=== PATIENT | male | born 1995 | race Caucasian/White ===

== ENCOUNTER 2016-07-16 19:11 | Emergency (ER) | payer MEDICAID ==
[2016-07-16 21:45] VITALS: BP 127/68
== END 2016-07-16 21:45 | disposition home or self-care (01) ==
LOC: ED 19:11
DX: R19.7 Diarrhea, unspecified (principal); R07.89 Other chest pain; R42 Dizziness and giddiness; R63.0 Anorexia
CPT/HCPCS: 82962